=== PATIENT | female | born 1975 | race Two or more races ===

== ENCOUNTER 2024-09-24 03:43 | Emergency (ER) | payer OTHER ==
[~2024-09-24] VITALS: Ht 167.6 cm; Wt 73.0 kg
[~2024-09-24 03:43] MED LIST: HYDROXYZINE 25 MG; NITROFURANTOIN100 MG PO; PRENATAL1 TAB PO; PROTONIX40 MG PO; SYNTHROID50 MCG
[2024-09-24] MEDS ORDERED: KETOROLAC TROMETHAMINE 30 MG VIAL IV STA (04:41)
[2024-09-24] MEDS ORDERED: 0.9 % SODIUM CHLORIDE 1,000 ML IV STA (04:41)
[2024-09-24] MEDS ORDERED: PROMETHAZINE HCL 50 MG/ML AMPUL IM STA (04:42)
[2024-09-24] MEDS ORDERED: MEPERIDINE HCL/PF 50 MG/ML VIAL IM STA (04:42)
[2024-09-24] MEDS ORDERED: KETOROLAC TROMETHAMINE 30 MG VIAL ONE (05:08)
[2024-09-24] MEDS ORDERED: PROMETHAZINE HCL 50 MG/ML AMPUL IM ONE (05:08)
[2024-09-24 05:26] LABS: HEMATOCRIT 38.8 % (36.0-45.00); HEMOGLOBIN 13.3 g/dL (12.0-15.00); MEAN CELL VOLUME 89.5 fL (80.00-100.00); MEAN CORPUSCULAR HEMOGLOBIN 30.6 pg (27.00-32.0); MEAN CORPUSCULAR HGB CONC 34.2 g/dl (32.0-36.0); PLATELET COUNT 255 K/uL (150-450); RED BLOOD COUNT 4.33 M/uL (4.00-6.00); RED CELL DISTRIBUTION WIDTH 13.6 % (11.5-14.5)
[2024-09-24 06:09] LABS: CALCIUM 9.4 mg/dL (8.5-10.1); CREATININE SERUM 0.85 mg/dL (0.55-1.02); GFR 70.51; POTASSIUM 4.21 mEq/L (3.5-5.1)
[2024-09-24 06:24] LABS: URINE APPEARANCE Cloudy; URINE BILIRRUBIN Negative (NEGATIVE); URINE BLOOD Small; URINE COLOR Yellow; URINE GLUCOSE Negative (NEGATIVE); URINE KETONE Negative (NEGATIVE); URINE LEUKOCYTE Trace; URINE NITRATE Negative; URINE PROTEIN Trace (NEGATIVE); URINE UROBILINOGEN 0.2 E.U./dl
[2024-09-24 06:25] LABS: URINE EPITHELIAL CELLS 15.9 uL (0.0-38.8); URINE RBC 62.7 uL (0.0-20.8); URINE WBC 56.6 uL (0.0-23.2)
[2024-09-24 06:27] LABS: URINE CAST 1.32 uL (0.0-1.40)
== END 2024-09-24 08:17 | disposition home or self-care (01) ==
LOC: ER 03:45
DX: N20.1 Calculus of ureter (principal); R10.9 Unspecified abdominal pain; Z88.2 Allergy status to sulfonamides; Z87.442 Personal history of urinary calculi; N20.0 Calculus of kidney
CPT/HCPCS: 36415; 74176; 96365; 96366; 96372; 99284; J1885; J2250; J3490